=== PATIENT | female | born 1970 | race Hispanic/Latino ===

== ENCOUNTER → 2018-02-23 | Outpatient (CLI) | payer OTHER ==
--- NOTE | 2018-02-25 11:35 | Diagnostic Imaging Report ---
PROCEDURE: CT ABDOMEN AND PELVIS WITHOUT CONTRAST TECHNIQUE: The abdomen and pelvis were scanned utilizing a multidetector helical scanner from the diaphragm to the lesser trochanter after the oral administration of water. No IV contrast was administered because of stone protocol. Coronal and sagittal multiplanar reformations were obtained. DLP: 432.3 mGy-cm COMPARISON: Abdominal CT 05/01/2016 INDICATIONS: STONE PROTOCOL, FOLLOW UP EVERY 6 MONTHS, PARTIAL NEPHRECTOMY FINDINGS: ABSENCE OF INTRAVENOUS CONTRAST DECREASES SENSITIVITY FOR DETECTION OF FOCAL LESIONS AND VASCULAR PATHOLOGY. LOWER THORAX: Normal. HEPATOBILIARY: No focal hepatic lesions. Previously noted enhancing lesion is not well visualized without IV contrast. No biliary ductal dilatation. Cholecystectomy. SPLEEN: No splenomegaly. PANCREAS: No focal masses or ductal dilatation. ADRENALS: No adrenal nodules. KIDNEYS/URETERS: Right partial nephrectomy with surgical clips in the right hilum and surgical defect in the interpolar region. No new contour abnormalities to suggest local recurrence. Increased stone burden in the right kidney with at least 5 punctate nonobstructing calculi, previously one calculus. Most of the calculi measure approximately 0.1 cm with the largest measuring approximately 0.3 x 0.1 cm. No left renal calculi. Previous left renal cyst is not well-visualized without contrast. PELVIC ORGANS/BLADDER: Unremarkable. PERITONEUM / RETROPERITONEUM: No free air or fluid. LYMPH NODES: No lymphadenopathy. 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 GI TRACT: No distention or wall thickening. BONES AND SOFT TISSUES: Unremarkable. IMPRESSION: 1. Increased stone burden in the right kidney. 2. Stable post-operative changes of partial right nephrectomy. Dictated by: Tristan Carlisle M.D. on 02/25/2018 at 11:35 Electronically approved by: Tristan Carlisle M.D. on 02/25/2018 at 11:35
== END ==
LOC: CT 16:15
PROVIDERS: ATTEND Urology
DX: N20.0 Calculus of kidney (principal)
CPT/HCPCS: 74176

== ENCOUNTER → 2020-09-09 | Outpatient (CLI) | payer OTHER ==
[~2020-09-09] MED LIST: IOPAMIDOL 370 MG/ML 200 ML INFUS..BTL INJ ONE; SODIUM CHLORIDE 0.9% 250ML 250 ML ONE
[2020-09-09 18:00] LABS: BLOOD UREA NITROGEN 11 mg/dL (7-26); BUN/CREATININE RATIO 16 (6-25); CREATININE, SERUM 0.67 mg/dL (0.57-1.11); EST GLOMERULAR FILTRATION RATE > 60 ML/MIN (60-)
--- NOTE | 2020-09-10 08:41 | Diagnostic Imaging Report ---
CT of the abdomen and pelvis with and without contrast TECHNIQUE: CT of the abdomen and pelvis WITHOUT and WITH intravenous contrast and WITHOUT oral contrast. Dose modulation, iterative reconstruction, and/or weight-based adjustment of the mA/kV was utilized to reduce the radiation dose to as low as reasonably achievable. 3-D reconstructions were obtained. IV CONTRAST: 100 mL of Isovue-370 ORAL CONTRAST: None RADIATION DOSE: Total DLP: 908 mGy*cm COMPLICATIONS: None INDICATION: ^[id number] ^[id number] ^MICROSCPOIC HEMATURIA. COMPARISON: CT dated 02/23/2018 and MRI dated 10/04/2016. FINDINGS: LOWER THORAX: Unremarkable. HEPATOBILIARY: No focal hepatic lesions. Gallbladder is surgically absent. No biliary ductal dilatation. SPLEEN: No splenomegaly. PANCREAS: No focal masses or ductal dilatation. ADRENALS: No adrenal nodules. KIDNEYS/URETERS: Stable post surgical drains from partial right anterior mid pole nephrectomy. There are multiple nonobstructing punctate 1 to 2 mm bilateral renal calculi for example in the right kidney axial noncontrast images 62, 63, 64, 65 and 84. Additional linear calcifications probably relate to postsurgical change. Within the left kidney there are a few renal calculi (image 92, 93 and 94 measuring up to 3 mm. No surrounding inflammatory changes are identified. Ureters are not dilated. Negative for ureteral or bladder stone. There is symmetric excretion of contrast without intraluminal filling defect into nondilated ureters. PELVIC ORGANS/BLADDER: Urinary bladder is mildly distended and otherwise unremarkable. No intraluminal filling defect is identified. Uterus damages heterogeneous enhancement with irregular hypoattenuation along the endometrial complex, nonspecific given patient's age. There are also bilateral hypodense ovarian lesions, likely related to cyst/follicles. No suspicious separate adnexal mass. Negative for pelvic free fluid. PERITONEUM/RETROPERITONEUM: No free air or fluid. LYMPH NODES: No lymphadenopathy. VESSELS: Unremarkable. GI TRACT: Bowel loops are not dilated. No surrounding inflammatory changes are noted. Stomach and portions of the colon are decompressed limiting evaluation. Postsurgical changes from appendectomy are noted. BONES AND SOFT TISSUES: No acute osseous abnormality. No suspicious lytic or blastic lesion. Soft tissues are unremarkable. IMPRESSION: 1. Multiple bilateral nonobstructing renal calculi as described above. Stable postsurgical changes from partial right anterior mid pole nephrectomy. 2. No suspicious enhancing renal mass, hydronephrosis or perinephric stranding or fluid collection. 3. Irregular heterogeneous appearance of the endometrial complex, possibly related to perimenopausal changes. Correlate with patient's symptoms and consider ultrasound versus chronologic evaluation of clinically indicated. Probable bilateral ovarian follicles/physiologic cysts are noted. Signed by: Tushar Rodas MD on 09/10/2020 8:38 AM
== END ==
LOC: CT 17:06
PROVIDERS: ATTEND Urology
DX: R31.21 Asymptomatic microscopic hematuria (principal)
CPT/HCPCS: 36415; 74178; 82565; 84520; J7050; Q9967

== ENCOUNTER → 2020-10-01 | Outpatient (CLI) | payer OTHER ==
--- NOTE | 2020-10-01 17:08 | Diagnostic Imaging Report ---
Parathyroid Scan with SPECT Reason for exam: Hyperparathyroidism Radiopharmaceutical: Tc-99m sestamibi 25.7 mCi IV LAC After intravenous administration of the radiopharmaceutical, immediate and 2-hour planar images of the neck and upper chest were obtained. Tomographic images of the neck and upper chest were obtained following the initial planar images. On the initial planar images, a focus of increased tracer is seen in the upper pole of the left thyroid lobe. On the tomographic images, this uptake is localized to lie immediately posterior to the upper pole of the left thyroid lobe. On the delayed planar images, the thyroid washes out complete and this focus persists. No other focal abnormalities are identified. Impression: Single enlarged hypermetabolic parathyroid gland is identified immediately posterior to the upper pole of the left thyroid lobe. Signed by: Dr. Valencia Garcia M.D. on 10/01/2020 5:05 PM
== END ==
LOC: NM 09:15
PROVIDERS: ATTEND Urology
DX: E21.3 Hyperparathyroidism, unspecified (principal)
CPT/HCPCS: 78071; A9500

== ENCOUNTER → 2020-10-01 | Outpatient (CLI) | payer OTHER ==
--- NOTE | 2020-10-01 11:28 | Diagnostic Imaging Report ---
EXAMINATION: CHEST 2 VIEWS INDICATION: Cough. ^[id number] ^[id number] ^COUGH COMPARISON: None FINDINGS: TUBES and LINES: None. LUNGS: Mild perihilar peribronchial hazy opacity could be due to bronchitis. No focal lung consolidation. PLEURA: No pleural effusion or pneumothorax. HEART AND MEDIASTINUM: The cardiomediastinal silhouette is unremarkable. BONES AND SOFT TISSUES: No acute osseous lesion. Soft tissues are unremarkable. UPPER ABDOMEN: No free air under the diaphragm. IMPRESSION: Mild perihilar peribronchial hazy opacity could be due to bronchitis. No focal lung consolidation. Signed by: Dr. Gerson Rosado M.D. on 10/01/2020 11:24 AM
== END ==
LOC: RAD 09:20
PROVIDERS: ATTEND Family Medicine
DX: R05 Cough (principal); R06.02 Shortness of breath
CPT/HCPCS: 71046